=== PATIENT | male | born 1985 | race Caucasian/White ===

== ENCOUNTER 2016-11-15 01:25 | Inpatient (IN) | payer MEDICAID ==
[2016-11-15 10:00] VITALS: BP 112/63
[2016-11-15 14:00] VITALS: BP 110/69
[2016-11-15 14:00] LABS: SODIUM SERUM 140 mmol/L (136-145)
[2016-11-15 14:01] LABS: CALCIUM 8.7 mg/dL (8.5-10.1); CARBON DIOXIDE 25.7 mmol/L (21-32); CHLORIDE SERUM 106 mmol/L (98-107); CHOLESTEROL 120 mg/dL (<200); CHOLESTEROL/HDL RATIO 2.7; GFR1 > 60 mL/min; GLUCOSE SERUM 76 mg/dL (74-106); HDL CHOLESTEROL 44 mg/dL (40-60); POTASSIUM SERUM 3.8 mmol/L (3.5-5.1); TRIGLYCERIDES 76 mg/dL (<150)
[2016-11-15 14:04] LABS: BASOPHIL % 0.6 % (0-2); PLATELET COUNT 225 x10^3mcL (130-400)
[2016-11-15 17:00] VITALS: BP 110/68
[2016-11-15 18:48] VITALS: BP 110/68
== END 2016-11-15 19:10 | disposition home or self-care (01) | DRG 203 ==
LOC: ED 01:25 → DU 04:02
PROVIDERS: ADMIT Family Medicine
DX: M94.0 Chondrocostal junction syndrome [Tietze] (principal); N17.0 Acute kidney failure with tubular necrosis
CPT/HCPCS: J7030; Q0092

== ENCOUNTER 2016-12-29 23:03 | Emergency (ER) | payer MEDICAID ==
[2016-12-29 23:08] VITALS: BP 133/75
== END 2016-12-30 00:40 | disposition left against medical advice (07) ==
LOC: ED 23:03
DX: Z53.21 Procedure and treatment not carried out due to patient leaving prior to being seen by health care provider (principal)

== ENCOUNTER 2017-01-04 23:20 | Emergency (ER) | payer MEDICAID ==
[2017-01-05 02:13] VITALS: BP 121/76
== END 2017-01-05 02:13 | disposition home or self-care (01) ==
LOC: ED 23:20
DX: R51 Headache (principal); R07.89 Other chest pain
CPT/HCPCS: J1200; J2765

== ENCOUNTER 2017-02-28 19:09 | Emergency (ER) | payer MEDICAID ==
[2017-02-28 19:38] VITALS: BP 133/83
== END 2017-02-28 21:30 | disposition home or self-care (01) ==
LOC: ED 19:09
DX: T78.40XA Allergy, unspecified, initial encounter (principal); X58.XXXA Exposure to other specified factors, initial encounter

== ENCOUNTER 2017-03-15 04:21 | Emergency (ER) | payer MEDICAID ==
[~2017-03-15] VITALS: Ht 177.8 cm; Wt 93.9 kg
[2017-03-15 04:28] VITALS: BP 112/71; Ht 177.8 cm; Wt 93.9 kg
== END 2017-03-15 05:02 | disposition home or self-care (01) ==
LOC: ED 04:21
DX: H60.92 Unspecified otitis externa, left ear (principal); H66.92 Otitis media, unspecified, left ear

== ENCOUNTER 2017-07-02 05:53 | Emergency (ER) | payer MEDICAID ==
[2017-07-02 06:54] LABS: BASOPHIL % 0.3 % (0-2); PLATELET COUNT 213 x10^3mcL (130-400); RED CELL DISTRIBUTION WIDTH 13.5 % (11.5-14.5)
[2017-07-02 07:15] LABS: CALCIUM 8.4 mg/dL (8.5-10.1); CARBON DIOXIDE 27.1 mmol/L (21-32); CHLORIDE SERUM 105 mmol/L (98-107); CREATININE SERUM 0.9 mg/dL (0.7-1.3); GFR1 > 60 mL/min; GLUCOSE SERUM 93 mg/dL (74-106); POTASSIUM SERUM 4.5 mmol/L (3.5-5.1); SODIUM SERUM 140 mmol/L (136-145)
[2017-07-02 08:06] VITALS: BP 119/70
== END 2017-07-02 08:06 | disposition home or self-care (01) ==
LOC: ED 05:53
PROVIDERS: Emergency Medicine
DX: K52.9 Noninfective gastroenteritis and colitis, unspecified (principal); R42 Dizziness and giddiness; M79.1 Myalgia
CPT/HCPCS: 36415; J1885

== ENCOUNTER 2017-08-21 19:00 | Emergency (ER) | payer MEDICAID ==
[~2017-08-21] VITALS: Ht 172.7 cm; Wt 99.8 kg
[2017-08-21 19:19] VITALS: BP 128/76
== END 2017-08-21 19:54 | disposition home or self-care (01) ==
LOC: ED 19:00
DX: G89.29 Other chronic pain (principal); M54.5 Low back pain; M79.1 Myalgia
CPT/HCPCS: J3010; J7512

== ENCOUNTER 2019-04-03 18:31 | Emergency (ER) | payer SELFPAY ==
[~2019-04-03] VITALS: Ht 175.3 cm; Wt 107.0 kg
[2019-04-03 18:38] VITALS: Ht 175.3 cm; Wt 107.0 kg
[2019-04-03 20:58] VITALS: BP 136/68
== END 2019-04-03 20:58 | disposition home or self-care (01) ==
LOC: ED 18:31
DX: G44.209 Tension-type headache, unspecified, not intractable (principal); R42 Dizziness and giddiness
CPT/HCPCS: J0780; J1885

== ENCOUNTER 2019-09-30 16:29 | Emergency (ER) | payer MEDICAID ==
[~2019-09-30] VITALS: Ht 177.8 cm; Wt 106.6 kg
[2019-09-30 17:10] VITALS: Ht 177.8 cm; Wt 106.6 kg
[2019-09-30 18:37] VITALS: BP 123/70
== END 2019-09-30 18:37 | disposition home or self-care (01) ==
LOC: ED 16:29
DX: B34.9 Viral infection, unspecified (principal); Z20.828 Contact with and (suspected) exposure to other viral communicable diseases
CPT/HCPCS: U0003-CS